=== PATIENT | male | born 1950 | race Caucasian/White ===

== ENCOUNTER → 2016-10-15 | Outpatient (CLI) | payer OTHER ==
[~2016-10-15] MED LIST: DABI150C PO; DILT120C51 PO; TOPROL PO; VALA500T60 PO
[2016-10-15 15:22] LABS: BLOOD UREA NITROGEN 11 mg/dl (7-18); BUN/CREATININE RATIO 10.2 (10-20); CALCIUM 9.1 mg/dl (8.5-10.1); CARBON DIOXIDE 27 mmol/L (21-32); CHLORIDE 105 mmol/L (98-107); GLUCOSE 93 mg/dl (70-99); POTASSIUM 4.1 mmol/L (3.5-5.1); SODIUM 141 mmol/L (136-145)
[2016-10-15 15:43] LABS: HEMATOCRIT 43.3 % (42-52); MEAN CELL VOLUME 84.2 fL (80-100); MEAN CORPUSCULAR HEMOGLOBIN 28.4 pg (25-34); MEAN CORPUSCULAR HGB CONC 33.7 g/dl (32-36); MEAN PLATELET VOLUME 9.6 fL (7.4-10.4); PLATELET COUNT 355 K/uL (130-400); RED BLOOD COUNT 5.14 M/uL (4.7-6.1); WHITE BLOOD COUNT 8.91 K/uL (4.8-10.8)
[2016-10-15 15:44] LABS: BASO % 0.3 %; BASO ABS # 0.03 K/uL (0-0.2); COMPLETE YES; EOS % 0.7 %; IG% 0.2 %; LYMPH % 6.7 %; MONO % 10.1 %
== END | disposition home or self-care (01) ==
LOC: C.LABSPEC 14:45
PROVIDERS: ATTEND Internal Medicine
DX: I48.91 Unspecified atrial fibrillation (principal); C85.80 Other specified types of non-Hodgkin lymphoma, unspecified site

== ENCOUNTER → 2016-10-22 | Outpatient (CLI) | payer OTHER ==
[~2016-10-22] MED LIST changes: +OPTIRAY 320 IV PRN
--- NOTE | 2016-10-22 11:06 | DIAGNOSTIC IMAGING REPORT ---
CT brain combination HEAD COMBO CLINICAL HISTORY: NORMAL PRESSURE HYDROCEPHALUS hydrocephalus TECHNIQUE: Pre and postcontrast transaxial acquisition COMPARISON STUDY: 05/19/2013 FINDINGS: Moderate to significant chronic mucosal thickening of the maxillary and ethmoid sinuses. Mastoid air cells are considered clear. Ventricular peritoneal shunt unchanged in location. Tip remains within the fourth ventricle. Mild compensatory hydrocephalus unchanged from the prior study. No new or interval findings IMPRESSION: Stable exam with no change from the prior study. No abnormal postcontrast enhancement. Chronic sinusitis of the ethmoid and maxillary regions Electronically signed by: Omer Cuellar M.D. 10/22/2016 11:04 AM Dictated Date/Time: 10/22/2016 10:56 AM
== END | disposition home or self-care (01) ==
LOC: C.CTS 09:49
PROVIDERS: ATTEND Internal Medicine
DX: G91.2 (Idiopathic) normal pressure hydrocephalus (principal)

== ENCOUNTER → 2017-01-26 | Outpatient (CLI) | payer OTHER ==
[~2017-01-26] MED LIST changes: -OPTIRAY 320 IV PRN
== END | disposition home or self-care (01) ==
LOC: C.LABSPEC 14:23
PROVIDERS: ATTEND Internal Medicine Hematology & Oncology
DX: C83.00 Small cell B-cell lymphoma, unspecified site (principal)

== ENCOUNTER → 2017-04-19 | Outpatient (CLI) | payer OTHER ==
[2017-04-19 13:03] LABS: BASO % 1.1 %; BASO ABS # 0.06 K/uL (0-0.2); COMPLETE YES; EOS % 1.8 %; HEMATOCRIT 46.3 % (42-52); IG% 0.2 %; LYMPH % 14.2 %; MEAN CELL VOLUME 86.4 fL (80-100); MEAN CORPUSCULAR HEMOGLOBIN 29.1 pg (25-34); MEAN CORPUSCULAR HGB CONC 33.7 g/dl (32-36); MEAN PLATELET VOLUME 9.9 fL (7.4-10.4); MONO % 13.9 %; NEUT % 68.8 %; PLATELET COUNT 310 K/uL (130-400); RED BLOOD COUNT 5.36 M/uL (4.7-6.1); WHITE BLOOD COUNT 5.62 K/uL (4.8-10.8)
[2017-04-19 13:26] LABS: ALT/SGPT 22 U/L (12-78); AST/SGOT 20 U/L (15-37); BLOOD UREA NITROGEN 16 mg/dl (7-18); BUN/CREATININE RATIO 12.9 (10-20); CALCIUM 9.6 mg/dl (8.5-10.1); CARBON DIOXIDE 29 mmol/L (21-32); CHLORIDE 104 mmol/L (98-107); GLUCOSE 93 mg/dl (70-99); POTASSIUM 4.8 mmol/L (3.5-5.1); SODIUM 140 mmol/L (136-145)
[2017-04-19 13:31] LABS: ALB/GLOB RATIO 1.3 (0.9-2); ALKALINE PHOSPHATASE 133 U/L (45-117); CHOLESTEROL 231 mg/dl (0-200); CHOLESTEROL/HDL RATIO 4.8; HDL CHOLESTEROL 48 mg/dl; PROSTATE SPECIFIC ANTIGEN < 0.010 ng/ml (0.000-4.000); TRIGLYCERIDES 144 mg/dl (0-150); VERY LOW DENSITY LIPOPROT CALC 29 mg/dl
--- NOTE | 2017-05-04 10:12 | CODING QUERY MEDICAL NECESSITY ---
CQSUPPORTING DIAGNOSIS NEEDED A supporting diagnosis is required for the test/procedure performed on this patient in order for us to be reimbursed by the patient's insurance. Please provide a supporting diagnosis for the following test/procedure listed below next to the test name along with your signature. *If there is no additional diagnosis for this patient that would support the following test/procedure please document that below next to the test/procedure. Test(s)/Procedure(s) that require a supporting diagnosis: DOS 04/19/17 PROSTATE SPECIFIC TEST Provider Signature: Date: Thank you Nallely Erazo [employer] Once completed, please kindly fax back to [phone] For questions please call [phone]
== END | disposition home or self-care (01) ==
LOC: C.LABSPEC 12:26
PROVIDERS: ATTEND Internal Medicine
DX: I48.91 Unspecified atrial fibrillation (principal); E78.5 Hyperlipidemia, unspecified; C83.00 Small cell B-cell lymphoma, unspecified site; C61 Malignant neoplasm of prostate

== ENCOUNTER → 2017-04-20 | Outpatient (CLI) | payer OTHER | END | disposition home or self-care (01) | LOC: C.LABSPEC 14:59 | PROVIDERS: ATTEND Internal Medicine | DX: Z12.11 Encounter for screening for malignant neoplasm of colon (principal) ==

== ENCOUNTER → 2017-10-18 | Outpatient (CLI) | payer OTHER ==
[2017-10-18 15:56] LABS: BASO % 0.6 %; BASO ABS # 0.04 K/uL (0-0.2); EOS % 1.1 %; EOS ABS # 0.07 K/uL (0-0.5); HEMATOCRIT 48.7 % (42-52); HEMOGLOBIN 16.3 g/dL (14.0-18.0); IG# 0.02 K/uL (0.00-0.02); LYMPH % 13.8 %; LYMPH ABS # 0.89 K/uL (1.2-3.4); MEAN CELL VOLUME 86.7 fL (80-100); MEAN CORPUSCULAR HGB CONC 33.5 g/dl (32-36); MEAN PLATELET VOLUME 10.1 fL (7.4-10.4); MONO % 9.2 %; MONO ABS # 0.59 K/uL (0.11-0.59); NEUT ABS # 4.83 K/uL (1.4-6.5); PLATELET COUNT 371 K/uL (130-400); RED CELL DISTRIBUTION WIDTH CV 14.6 % (11.5-14.5); RED CELL DISTRIBUTION WIDTH SD 46.3 fL (36.4-46.3); WHITE BLOOD COUNT 6.44 K/uL (4.8-10.8)
[2017-10-18 16:06] LABS: ALBUMIN 4.1 gm/dl (3.4-5.0); ALT/SGPT 23 U/L (12-78); AST/SGOT 13 U/L (15-37); BLOOD UREA NITROGEN 17 mg/dl (7-18); CALCIUM 9.4 mg/dl (8.5-10.1); CARBON DIOXIDE 28 mmol/L (21-32); CHOLESTEROL 248 mg/dl (0-200); CREATININE 1.17 mg/dl (0.60-1.40); GLUCOSE 88 mg/dl (70-99); POTASSIUM 3.4 mmol/L (3.5-5.1); SODIUM 137 mmol/L (136-145)
[2017-10-18 16:16] LABS: ALKALINE PHOSPHATASE 132 U/L (45-117); LDL CHOLESTEROL (DIRECT) 167 mg/dl; TOTAL PROTEIN 7.8 gm/dl (6.4-8.2)
== END | disposition home or self-care (01) ==
LOC: C.LABSPEC 15:34
PROVIDERS: ATTEND Internal Medicine
DX: C83.00 Small cell B-cell lymphoma, unspecified site (principal); I48.91 Unspecified atrial fibrillation; B35.1 Tinea unguium

== ENCOUNTER → 2017-10-21 | Outpatient (CLI) | payer OTHER ==
[~2017-10-21] MED LIST changes: +OPTIRAY 320 IV PRN
--- NOTE | 2017-10-21 12:02 | DIAGNOSTIC IMAGING REPORT ---
HEAD CT WITH AND WITHOUT INTRAVENOUS CONTRAST HISTORY: NORMAL PRESSURE HYDROCEPHALUS, MEMORY DEFICIT TECHNIQUE: Multiaxial CT images of the head were performed both before and after the intravenous administration of contrast. COMPARISON STUDY: Head CT 10/22/2016. FINDINGS: There is no mass, hematoma, midline shift. Stable moderate ventriculomegaly. There is again noted a right frontal approach ventriculostomy catheter. However, the proximal end of the catheter has become detached/fractured at the level of the lucho hole and has advanced into the brain by approximately 3 cm. The tip previously was located at the fourth ventricle and is now located at the left cerebellar hemisphere. The mastoid air cells are clear. Moderate mucosal thickening within the maxillary sinuses and right sphenoid sinus. Mild mucosal thickening within the ethmoid air cells. No calvarial fractures. No abnormal enhancement. IMPRESSION: 1. There is again noted a right frontal approach ventriculostomy catheter. However, the proximal end of the catheter has become detached/fractured at the level of the lucho hole and has advanced into the brain by approximately 3 cm. The tip previously was located at the fourth ventricle and is now located at the left cerebellar hemisphere. 2. Stable moderate ventriculomegaly. 3. No intracranial hemorrhage. 4. These findings were called to Dr. Smita Paz at 11:57 AM on 10/21/2017. Electronically signed by: Ryan Maza M.D. 10/21/2017 12:00 PM Dictated Date/Time: 10/21/2017 11:47 AM
== END | disposition home or self-care (01) ==
LOC: C.CTS 11:19
PROVIDERS: ATTEND Internal Medicine
DX: G91.2 (Idiopathic) normal pressure hydrocephalus (principal); R41.3 Other amnesia

== ENCOUNTER 2021-01-02 12:17 | Inpatient (IN) ==
[2021-01-02] MEDS ORDERED: ALBUT/IPRATROP 3MG/0.5MG NEB 3 ML VIAL NEB STA (13:01)
[2021-01-02 13:16] LABS: Basophils # (auto) 0.01 K/uL (0-0.2); Basophils % (auto) 0.1 %; Eosinophils # (auto) 0.01 K/uL (0-0.5); Eosinophils % (auto) 0.1 %; Hematocrit (blood only) 39.9 % (42-52); Hemoglobin 13.9 g/dL (14.0-18.0); Immature Granulocytes # (auto) 0.11 K/uL (0.00-0.02); Immature Granulocytes % (auto) 0.6 %; Lymphocytes # (auto) 0.45 K/uL (1.2-3.4); Lymphocytes % (auto) 2.3 %; Mean Corpuscular Hgb Conc 34.8 g/dL (32-36); Mean Corpuscular Volume 80.4 fL (80-100); Mean Platelet Volume 9.5 fL (7.4-10.4); Monocytes # (auto) 1.63 K/uL (0.11-0.59); Monocytes % (auto) 8.3 %; Neutrophils # (auto) 17.37 K/uL (1.4-6.5); Neutrophils % (auto) 88.6 %; Platelet Count 564 K/uL (130-400); RDW Coefficient of Variation 15.4 % (11.5-14.5); RDW Standard Deviation 44.8 fL (36.4-46.3); Red Blood Count 4.96 M/uL (4.7-6.1); White Blood Count 19.58 K/uL (4.8-10.8)
[2021-01-02 13:25] LABS: iSTAT Creatinine 1.1 mg/dl (0.6-1.3); iSTAT Hemoglobin 14.3 g/dl (14.0-18.0); iSTAT Ionized Calcium 1.02 mmol/l (1.12-1.32)
[2021-01-02 13:31] LABS: BUN Creatinine Ratio 22.6 (10-20); Calcium 9.2 mg/dl (8.5-10.1); Creatinine Clr Calc Pharmacy 78.3 ml/min; Est GFR (African American) 80.9 ml/min; Est GFR (Non-African American) 69.8 ml/min; Potassium 3.2 mmol/L (3.5-5.1)
--- NOTE | 2021-01-02 13:58 | Emergency Department Note ---
History of Present Illness General Chief Complaint: Shortness of Breath/Dyspnea Stated Complaint: PAIN IN L SIDE X5DAYS,SHALLOW BREATHING,LOW O2 LEV Time Seen by Provider: 01/02/21 12:53 History of Present Illness Provider Complaint: shortness of breath and cough Onset (ago): day(s) (5) Severity: moderate Consistency/Duration: + progressively worsening Maximum Pain Intensity: 3 Current Pain Intensity: 3 Exacerbated By: + coughing Associated symptoms: + fever and + cough HPI Narrative: No history of smoking. Patient states that he was recently started on a Z-Desean which did not help. Patient states he went to his PCPs office Dr. Gabe higginbotham and had an oxygen saturation in the 80s on room air and was instructed to come here. Home Medications Medication Instructions Recorded Confirmed Type apixaban 5 mg tablet 5 mg PO BID 09/27/20 01/02/21 History diltiazem HCl 180 mg 180 mg PO DAILY 09/27/20 01/02/21 History capsule,extended release 24 hr hydrochlorothiazide 25 mg tablet 25 mg PO DAILY 09/27/20 01/02/21 History metoprolol succinate 25 mg 25 mg PO DAILY 09/27/20 01/02/21 History tablet,extended release 24 hr fluticasone fur. 100 mcg-umeclid 1 inh INHALATION DAILY #3 inhaler 12/24/20 01/02/21 Rx 62.5 mcg-vilant 25 mcg inhalat.powder azithromycin 500 mg tablet 500 mg PO DAILY 5 Days #5 tab 12/28/20 01/02/21 Rx guaifenesin 600 mg tablet, 600 mg PO BID PRN #60 tab 12/28/20 01/02/21 Rx extended release 12 hr spironolactone 12.5 mg PO DAILY 01/02/21 01/02/21 History Allergies Allergy/AdvReac Type Severity Reaction Status Date / Time ragweed pollen Allergy Mild UNKNOWN Unverified 01/02/21 14:26 Past Med/Surg History Medical History (Updated 01/02/21 @ 19:49 by Erick Barnett) Bronchiectasis CLL (chronic lymphocytic leukemia) Hypertension IgG subclass deficiency Impotence, organic No pertinent family history Normal pressure hydrocephalus Permanent atrial fibrillation Prostate cancer Surgical History (Updated 01/02/21 @ 13:59 by Erick Barnett) No pertinent past surgical history Social History Smoking Status: Never smoker Second Hand Exposure: No; Hx Alcohol Use: No Hx Substance Use: No Preferred Language: Cook Islander Communication Ability: Effective 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 Beliefs That Will Affect Care: None Current Living Situation: Spouse Other Information That Helps Us Care for You: No Feels Safe at Home: Yes Safety Concerns: Feels Safe At This Time Assistive Devices: Glasses and Hearing Aid - Left Review of Systems A total of 10 systems reviewed and were otherwise negative Physical Exam Vital Signs: Vital Signs - 24 hr 01/02/21 12:30 01/02/21 12:49 01/02/21 12:51 Temperature 36.4 C L Temperature Source Temporal Artery Sc an Pulse Rate 120 H 113 H 112 H Pulse Rate [Finger ] Pulse Rate from Sp O2 Sensor 114 H 111 H Pulse Rhythm Respiratory Rate 22 19 28 H Respiratory Effort / Characteristics Blood Pressure 137/84 129/82 Blood Pressure Hue n 101 97 Pulse Oximetry 92 91 91 Oxygen Delivery Me thod Room Air Oxygen Flow Rate Sepsis Recent Feve r Within 48 Hours No Sepsis New/Unexpla ined Change in Men thelma Status No Sepsis Action Take n by Nursing No Action Required Oxygen Flow Rate - Titration Pulse Oximetry Pos t Tiitration 01/02/21 13:00 01/02/21 13:01 01/02/21 13:03 Temperature Temperature Source Pulse Rate 116 H 108 H 110 H Pulse Rate [Finger ] Pulse Rate from Sp O2 Sensor 118 H 108 H Pulse Rhythm Regular Respiratory Rate 28 H 23 23 Respiratory Effort / Characteristics Blood Pressure 120/79 Blood Pressure Heu n 92 Pulse Oximetry 91 91 94 Oxygen Delivery Me thod Nasal Cannula Oxygen Flow Rate 2 Sepsis Recent Feve r Within 48 Hours Sepsis New/Unexpla ined Change in Men thelma Status Sepsis Action Take n by Nursing Oxygen Flow Rate - Titration 2 Pulse Oximetry Pos t Tiitration 94 01/02/21 13:10 01/02/21 13:20 01/02/21 13:30 Temperature Temperature Source Pulse Rate 111 H 111 H 109 H Pulse Rate [Finger ] Pulse Rate from Sp O2 Sensor 108 H 108 H 113 H Pulse Rhythm Respiratory Rate 24 Respiratory Effort / Characteristics Blood Pressure 119/76 Blood Pressure Hue n 90 Pulse Oximetry 94 93 94 Oxygen Delivery Me thod Nasal Cannula Oxygen Flow Rate 2 Sepsis Recent Feve r Within 48 Hours Sepsis New/Unexpla ined Change in Men thelma Status Sepsis Action Take n by Nursing Oxygen Flow Rate - Titration Pulse Oximetry Pos t Tiitration 01/02/21 13:31 01/02/21 13:37 01/02/21 13:40 Temperature Temperature Source Pulse Rate 108 H 113 H Pulse Rate [Finger ] 108 H Pulse Rate from Sp O2 Sensor 106 H 107 H Pulse Rhythm Respiratory Rate 20 18 Respiratory Effort / Characteristics Non-Labored Sponta neous Blood Pressure Blood Pressure Hue n Pulse Oximetry 94 94 94 Oxygen Delivery Me thod Nasal Cannula Nasal Cannula Oxygen Flow Rate 2 2 Sepsis Recent Feve r Within 48 Hours Sepsis New/Unexpla ined Change in Men thelma Status Sepsis Action Take n by Nursing Oxygen Flow Rate - Titration Pulse Oximetry Pos t Tiitration 01/02/21 13:50 01/02/21 14:00 01/02/21 14:01 Temperature Temperature Source Pulse Rate 113 H 117 H 113 H Pulse Rate [Finger ] Pulse Rate from Sp O2 Sensor Pulse Rhythm Respiratory Rate 21 22 Respiratory Effort / Characteristics Blood Pressure 121/80 Blood Pressure Hue n 93 Pulse Oximetry Oxygen Delivery Me thod Oxygen Flow Rate Sepsis Recent Feve r Within 48 Hours Sepsis New/Unexpla ined Change in Men thelma Status Sepsis Action Take n by Nursing Oxygen Flow Rate - Titration Pulse Oximetry Pos t Tiitration 01/02/21 14:10 01/02/21 14:20 01/02/21 14:41 Temperature Temperature Source Pulse Rate 115 H 112 H 120 H Pulse Rate [Finger ] Pulse Rate from Sp O2 Sensor Pulse Rhythm Respiratory Rate 25 H 23 22 Respiratory Effort / Characteristics Blood Pressure Blood Pressure Hue n Pulse Oximetry Oxygen Delivery Me thod Oxygen Flow Rate Sepsis Recent Feve r Within 48 Hours Sepsis New/Unexpla ined Change in Men thelma Status Sepsis Action Take n by Nursing Oxygen Flow Rate - Titration Pulse Oximetry Pos t Tiitration 01/02/21 14:48 01/02/21 14:50 01/02/21 15:00 Temperature Temperature Source Pulse Rate 112 H 114 H 104 H Pulse Rate [Finger ] Pulse Rate from Sp O2 Sensor 112 H 110 H 109 H Pulse Rhythm Respiratory Rate 22 24 23 Respiratory Effort / Characteristics Blood Pressure 124/66 125/71 Blood Pressure Hue n 85 89 Pulse Oximetry 98 97 95 Oxygen Delivery Me thod Oxygen Flow Rate Sepsis Recent Feve r Within 48 Hours Sepsis New/Unexpla ined Change in Men thelma Status Sepsis Action Take n by Nursing Oxygen Flow Rate - Titration Pulse Oximetry Pos t Tiitration 01/02/21 15:01 01/02/21 15:10 01/02/21 15:29 Temperature Temperature Source Pulse Rate 114 H 112 H 117 H Pulse Rate [Finger ] Pulse Rate from Sp O2 Sensor 112 H 114 H Pulse Rhythm Respiratory Rate 23 29 H 21 Respiratory Effort / Characteristics Blood Pressure Blood Pressure Hue n Pulse Oximetry 95 95 Oxygen Delivery Me thod Oxygen Flow Rate Sepsis Recent Feve r Within 48 Hours Sepsis New/Unexpla ined Change in Men thelma Status Sepsis Action Take n by Nursing Oxygen Flow Rate - Titration Pulse Oximetry Pos t Tiitration 01/02/21 15:30 01/02/21 15:31 01/02/21 15:40 Temperature Temperature Source Pulse Rate 112 H 116 H 106 H Pulse Rate [Finger ] Pulse Rate from Sp O2 Sensor 112 H 112 H 111 H Pulse Rhythm Respiratory Rate 29 H 20 18 Respiratory Effort / Characteristics Blood Pressure 131/84 Blood Pressure Hue n 99 Pulse Oximetry 97 97 93 Oxygen Delivery Me thod Oxygen Flow Rate Sepsis Recent Feve r Within 48 Hours Sepsis New/Unexpla ined Change in Men thelma Status Sepsis Action Take n by Nursing Oxygen Flow Rate - Titration Pulse Oximetry Pos t Tiitration 01/02/21 15:50 01/02/21 16:00 01/02/21 16:01 Temperature Temperature Source Pulse Rate 109 H 107 H 114 H Pulse Rate [Finger ] Pulse Rate from Sp O2 Sensor 112 H 110 H 109 H Pulse Rhythm Respiratory Rate 31 H 27 H 37 H Respiratory Effort / Characteristics Blood Pressure 126/84 Blood Pressure Hue n 98 Pulse Oximetry 93 93 93 Oxygen Delivery Me thod Oxygen Flow Rate Sepsis Recent Feve r Within 48 Hours Sepsis New/Unexpla ined Change in Men thelma Status Sepsis Action Take n by Nursing Oxygen Flow Rate - Titration Pulse Oximetry Pos t Tiitration 01/02/21 16:10 Temperature Temperature Source Pulse Rate 113 H Pulse Rate [Finger ] Pulse Rate from Sp O2 Sensor 111 H Pulse Rhythm Respiratory Rate 28 H Respiratory Effort / Characteristics Blood Pressure Blood Pressure Hue n Pulse Oximetry 93 Oxygen Delivery Me thod Oxygen Flow Rate Sepsis Recent Feve r Within 48 Hours Sepsis New/Unexpla ined Change in Men thelma Status Sepsis Action Take n by Nursing Oxygen Flow Rate - Titration Pulse Oximetry Pos t Tiitration Physical Exam: Physical Exam GENERAL: He is oriented to person, place, and time. He appears well-developed and well-nourished. He does not appear distressed. HENT: Exam performed. - Head: Normocephalic and atraumatic. - Right Ear: External ear normal. No mastoid tenderness. - Left Ear: External ear normal. No mastoid tenderness. - Mouth/Throat: The oropharynx is clear and moist. No trismus in the jaw. No dental abscesses or uvula swelling. No oropharyngeal exudate or tonsillar abscesses. EYES: Conjunctivae and EOM are normal. Pupils are equal, round, and reactive to light. Right eye exhibits no discharge. Left eye exhibits no discharge. No scleral icterus. NECK: Normal range of motion. Neck supple. No JVD present. No spinous process tenderness present. No carotid bruit present. No rigidity. No tracheal deviation and normal range of motion present. No Brudzinski's sign and no Kernig's sign noted. CV: Normal rate, irregular rhythm, normal heart sounds and intact distal pulses. There is no peripheral edema. Palpable radial pulses bue. PULM/CHEST: Expiratory wheezes bilaterally. Rhonchi bilaterally. - Chest Wall: He exhibits no tenderness. ABD: The abdomen is soft. Bowel sounds are normal. He has no distension. No mass is present. There is no tenderness. There is no rebound, no guarding, no Polk's sign and no tenderness at McBurney's point. Rovsig negative. MUSC/SKEL: Normal range of motion. There is no peripheral edema, tenderness or deformity. LYMPH: No cervical adenopathy. NEURO: He is alert and oriented to person, place, and time. He has normal strength. No cranial nerve deficit or sensory deficit. Coordination and gait normal. GCS eye subscore is 4. GCS verbal subscore is 5. GCS motor subscore is 6. Cerebellar tests wnl. SKIN: Skin is warm and dry. He is not diaphoretic. PSYCH: He has a normal mood and affect. Behavior is normal. Judgment and thought content normal. Course Course 1253: The patient was evaluated in room B9. A complete history and physical exam was performed Cardiac monitoring: An order was placed for continuous cardiac monitoring. The monitor shows a rate of 110 with atrial fibrillation rhythm Patient was satting 88% on room air on arrival in the emergency department. Patient was placed on 2 L nasal cannula which improved his oxygen saturation. EMR reviewed. Patient has a history of IgG deficiency and bronchiectasis. We will give the patient DuoNeb treatment. No history of COPD or asthma. Will ob tain CT scan of the chest to rule out pneumonia. We will plan on admitting the patient for presumed pneumonia. We will retest the patient for COVID-19 as well as influenza. 1500: Vital signs stable on 2 L nasal cannula. Labs show leukocytosis of 19.58. Potassium of 3.2. Lactate within normal limits. Covid and influenza negative. CT does show pneumonia. Patient be treated with broad-spectrum antibiotics, blood cultures pending. [facility]. Administered Medications Discontinued Medications Albuterol (Albut/Ipratrop 3mg/0.5mg Neb 3 Ml Vial) 3 ml NEB NOW STA Stop: 01/02/21 13:02 Last Admin: 01/02/21 13:32 Dose: 3 ml Documented by: [id number] Cefepime HCl (Maxipime) 2,000 mg in 20 mls @ 5 mls/min IV NOW STA; Protocol Stop: 01/02/21 14:59 Last Admin: 01/02/21 15:04 Dose: 5 mls/min Documented by: [id number] Vancomycin HCl 2,500 mg/ (Sodium Chloride) 550 mls @ 200 mls/hr IV NOW ONE Stop: 01/02/21 17:40 Last Infusion: 01/02/21 18:15 Dose: 0 mls/hr Documented by: [id number] Admin: 01/02/21 15:28 Dose: 200 mls/hr Documented by: [id number] Ioversol (Optiray 320 150ml) 90 ml IV ONCE ONE Stop: 01/02/21 14:34 Last Admin: 01/02/21 14:34 Dose: 90 ml Documented by: [id number] Medical Decision Making Laboratory Data Result diagrams: 01/02/21 12:59 01/02/21 12:59 Lab Results 01/02/21 01/02/21 01/02/21 Range/Units 12:59 12:59 12:59 WBC 19.58 H (4.8-10.8) K/uL RBC 4.96 (4.7-6.1) M/uL Hgb 13.9 L (14.0-18.0) g/dL POC Hgb (14.0-18.0) g/dl Hct 39.9 L (42-52) % POC Hct (42-52) % MCV 80.4 (80-100) fL MCH 28.0 (25-34) pg MCHC 34.8 (32-36) g/dL RDW Std Deviation 44.8 (36.4-46.3) fL RDW Coeff of Ariana 15.4 H (11.5-14.5) % Plt Count 564 H (130-400) K/uL MPV 9.5 (7.4-10.4) fL Immature Gran % (Auto) 0.6 % Neut % (Auto) 88.6 % Lymph % (Auto) 2.3 % Lake % (Auto) 8.3 % Eos % (Auto) 0.1 % Baso % (Auto) 0.1 % Neut # (Auto) 17.37 H (1.4-6.5) K/uL Lymph # (Auto) 0.45 L (1.2-3.4) K/uL Lake # (Auto) 1.63 H (0.11-0.59) K/uL Eos # (Auto) 0.01 (0-0.5) K/uL Baso # (Auto) 0.01 (0-0.2) K/uL Immature Gran # (Auto) 0.11 H (0.00-0.02) K/uL PT (9.0-12.0) Seconds INR (0.9-1.1) APTT (21.0-31.0) Seconds PTT Ratio POC Sodium (135-144) mmol/L Sodium 135 L (136-145) mmol/L POC Potassium (3.3-5.0) mmol/L Potassium 3.2 L (3.5-5.1) mmol/L POC Chloride (101-112) mmol/L Chloride 97 L (98-107) mmol/L Carbon Dioxide 26 (21-32) mmol/L POC Total CO2 (24-31) mmol/L Anion Gap 12.0 H (3-11) POC Anion Gap (16-25) mmol/L POC BUN (7-18) mg/dl BUN 24 H (7-18) mg/dl Creatinine 1.06 (0.6-1.4) mg/dl POC Creatinine (0.6-1.3) mg/dl Est Cr Clr Drug Dosing 78.3 ml/min Est GFR ( Amer) 80.9 ml/min Est GFR (Non-Af Amer) 69.8 ml/min BUN/Creatinine Ratio 22.6 H (10-20) Glucose 102 H (70-99) mg/dl POC Glucose (other) (70-99) mg/dl Lactate 1.3 (0.4-2.0) mmol/L Calcium 9.2 (8.5-10.1) mg/dl POC Ioniz Calcium Aliya (1.12-1.32) mmol/l COVID-19 Eval Order SARS-CoV-2 (PCR) (Negative) Influ A Molecular Assay (Negative) Influ B Molecular Assay (Negative) 01/02/21 01/02/21 01/02/21 Range/Units 13:13 13:25 13:25 WBC (4.8-10.8) K/uL RBC (4.7-6.1) M/uL Hgb (14.0-18.0) g/dL POC Hgb 14.3 (14.0-18.0) g/dl Hct (42-52) % POC Hct 42 (42-52) % MCV (80-100) fL MCH (25-34) pg MCHC (32-36) g/dL RDW Std Deviation (36.4-46.3) fL RDW Coeff of Ariana (11.5-14.5) % Plt Count (130-400) K/uL MPV (7.4-10.4) fL Immature Gran % (Auto) % Neut % (Auto) % Lymph % (Auto) % Lake % (Auto) % Eos % (Auto) % Baso % (Auto) % Neut # (Auto) (1.4-6.5) K/uL Lymph # (Auto) (1.2-3.4) K/uL Lake # (Auto) (0.11-0.59) K/uL Eos # (Auto) (0-0.5) K/uL Baso # (Auto) (0-0.2) K/uL Immature Gran # (Auto) (0.00-0.02) K/uL PT (9.0-12.0) Seconds INR (0.9-1.1) APTT (21.0-31.0) Seconds PTT Ratio POC Sodium 134 L (135-144) mmol/L Sodium (136-145) mmol/L POC Potassium 3.0 L (3.3-5.0) mmol/L Potassium (3.5-5.1) mmol/L POC Chloride 94 L (101-112) mmol/L Chloride (98-107) mmol/L Carbon Dioxide (21-32) mmol/L POC Total CO2 26 (24-31) mmol/L Anion Gap (3-11) POC Anion Gap 18.0 (16-25) mmol/L POC BUN 23 H (7-18) mg/dl BUN (7-18) mg/dl Creatinine (0.6-1.4) mg/dl POC Creatinine 1.1 (0.6-1.3) mg/dl Est Cr Clr Drug Dosing ml/min Est GFR ( Amer) ml/min Est GFR (Non-Af Amer) ml/min BUN/Creatinine Ratio (10-20) Glucose (70-99) mg/dl POC Glucose (other) 111 H (70-99) mg/dl Lactate (0.4-2.0) mmol/L Calcium (8.5-10.1) mg/dl POC Ioniz Calcium Aliya 1.02 L (1.12-1.32) mmol/l COVID-19 Eval Order Covid19 at [facility] SARS-CoV-2 (PCR) NEGATIVE (Negative) Influ A Molecular Assay (Negative) Influ B Molecular Assay (Negative) 01/02/21 01/02/21 Range/Units 13:28 13:46 WBC (4.8-10.8) K/uL RBC (4.7-6.1) M/uL Hgb (14.0-18.0) g/dL POC Hgb (14.0-18.0) g/dl Hct (42-52) % POC Hct (42-52) % MCV (80-100) fL MCH (25-34) pg MCHC (32-36) g/dL RDW Std Deviation (36.4-46.3) fL RDW Coeff of Ariana (11.5-14.5) % Plt Count (130-400) K/uL MPV (7.4-10.4) fL Immature Gran % (Auto) % Neut % (Auto) % Lymph % (Auto) % Lake % (Auto) % Eos % (Auto) % Baso % (Auto) % Neut # (Auto) (1.4-6.5) K/uL Lymph # (Auto) (1.2-3.4) K/uL Lake # (Auto) (0.11-0.59) K/uL Eos # (Auto) (0-0.5) K/uL Baso # (Auto) (0-0.2) K/uL Immature Gran # (Auto) (0.00-0.02) K/uL PT 12.7 H (9.0-12.0) Seconds INR 1.3 H (0.9-1.1) APTT 44.4 H (21.0-31.0) Seconds PTT Ratio 1.7 POC Sodium (135-144) mmol/L Sodium (136-145) mmol/L POC Potassium (3.3-5.0) mmol/L Potassium (3.5-5.1) mmol/L POC Chloride (101-112) mmol/L Chloride (98-107) mmol/L Carbon Dioxide (21-32) mmol/L POC Total CO2 (24-31) mmol/L Anion Gap (3-11) POC Anion Gap (16-25) mmol/L POC BUN (7-18) mg/dl BUN (7-18) mg/dl Creatinine (0.6-1.4) mg/dl POC Creatinine (0.6-1.3) mg/dl Est Cr Clr Drug Dosing ml/min Est GFR ( Amer) ml/min Est GFR (Non-Af Amer) ml/min BUN/Creatinine Ratio (10-20) Glucose (70-99) mg/dl POC Glucose (other) (70-99) mg/dl Lactate (0.4-2.0) mmol/L Calcium (8.5-10.1) mg/dl POC Ioniz Calcium Aliya (1.12-1.32) mmol/l COVID-19 Eval Order SARS-CoV-2 (PCR) (Negative) Influ A Molecular Assay Negative (Negative) Influ B Molecular Assay Negative (Negative) Imaging Data Radiologist's Impression: Chest CT 01/02/21 13:01 CT SCAN OF THE CHEST WITH IV CONTRAST CLINICAL HISTORY: Cough and fever. IgG deficiency COMPARISON STUDY: Chest CT dated 09/06/2020. TECHNIQUE: Following the IV administration of 90 cc of Optiray 320, CT scan of the thorax was performed from the thoracic inlet to the upper abdomen. Images are reviewed in the axial, sagittal, and coronal planes. IV contrast was administered without complication. A dose lowering technique was utilized adhering to the principles of ALARA. CT DOSE: 541.00 mGy.cm FINDINGS: Thyroid: Imaged portions of the thyroid gland are normal in size and attenuation. Thoracic aorta: There is atherosclerotic calcification of the thoracic aorta, which is normal in caliber and demonstrates standard 3-vessel arch anatomy. No dissection is seen. Pulmonary vasculature: The pulmonary trunk is normal in caliber. There are no filling defects identified in the central pulmonary vessels to indicate pulmonary embolus. Note that this examination was not protocoled for evaluation of the pulmonary arteries. Heart: The heart is enlarged and without pericardial effusion. The coronary arteries are densely calcified. Lungs and pleural spaces: There is a moderate and at least partially pleural fluid/collection is seen at the left lung base with dense consolidation/atele ctasis of the left lower lobe. There is associated pleural thickening. Bronchiectasis is seen in the right middle and right lower lobes, with right basilar scarring/atelectasis. Tree-in-bud opacities are again seen at the right lung base. The left upper lobe and the right upper lung appear clear. Layering secretions are noted in the trachea. Mediastinum: There is no mediastinal lymphadenopathy. Delmy: Clear. Axillae: There is no axillary lymphadenopathy. Upper abdomen: There is a small hiatal hernia. An 8 mm simple cystic lesion in the pancreatic body likely represents a sidebranch IPMN. Skeletal structures: The skeletal structures are osteopenic. A chronic compression deformity is again noted in T6. No lytic or blastic bony lesions are seen. Soft tissues: A shunt catheter traverses the right anterior chest wall. IMPRESSION: 1. There is a moderate and at least partially loculated pleural effusion/collection at the left lung base. There is overlying pleural thickening, and this is new from 09/06/2020. The sterility of this fluid cannot be assessed by CT. 2. There is consolidation/atelectasis of the left lower lung. 3. Bronchiectasis and chronic parenchymal changes are again seen at the right lung base. 4. Cardiomegaly. 5. Additional findings as above. ACT 112: Negative or not required by law. Electronically signed by: Freddy Quintanilla M.D. 01/02/2021 2:51 PM ECG Data Interpretation: Atrial fibrillation with a rate of 117. QRS and QTc intervals are within normal limits. No ST elevation or ST depression. [facility] Narrative 1253: The patient was evaluated in room B9. A complete history and physical exam was performed Cardiac monitoring: An order was placed for continuous cardiac monitoring. The monitor shows a rate of 110 with atrial fibrillation rhythm Patient was satting 88% on room air on arrival in the emergency department. Patient was placed on 2 L nasal cannula which improved his oxygen saturation. EMR reviewed. Patient has a history of IgG deficiency and bronchiectasis. We will give the patient DuoNeb treatment. No history of COPD or asthma. Will obtain CT scan of the chest to rule out pneumonia. We will plan on admitting the patient for presumed pneumonia. We will retest the patient for COVID-19 as well as influenza. 1500: Vital signs stable on 2 L nasal cannula. Labs show leukocytosis of 19.58. Potassium of 3.2. Lactate within normal limits. Covid and influenza negative. CT does show pneumonia. Patient be treated with broad-spectrum antibiotics, blood cultures pending. [facility]. Impression & Plan Hypoxia, Pneumonia, Bronchiectasis, IgG subclass deficiency Critical Care Time Critical Care Time: Yes Total Critical Care Time: 47 I have personally spent greater than 47 minutes of critical care time in the direct management of this patient. This includes bedside care, interpretation of diagnostic studies, and testing, discussion with consultants, patient, and family members, and other required patient management activities. This 47 minutes is in excess of all separately billable procedures. Discharge Plan Visit Data Chief Complaint: Shortness of Breath/Dyspnea Stated Complaint: PAIN IN L SIDE X5DAYS,SHALLOW BREATHING,LOW O2 LEV ED Provider: Erick Barnett Discharge Problem: Hypoxia, Pneumonia, Bronchiectasis, IgG subclass deficiency Patient Disposition: Still a Patient Discharge Instructions Interventions: ED Discharge Assessment Last Done: 01/02/21 17:30 Discharge Problem: Pneumonia Qualifiers: Pneumonia type: due to unspecified organism Laterality: right Lung location: unspecified part of lung Qualified Code(s): J18.9 - Pneumonia, unspecified organism Bronchiectasis Qualifiers: Bronchiectasis type: uncomplicated Qualified Code(s): J47.9 - Bronchiectasis, uncomplicated
[2021-01-02 14:12] LABS: Influenza A virus by PCR Negative (Negative); Influenza B virus by PCR Negative (Negative)
[2021-01-02] MEDS ORDERED: OPTIRAY 320 150ml IV ONE (14:33)
[2021-01-02 14:42] LABS: INR 1.3 (0.9-1.1); Partial Thromboplastin Ratio 1.7; Partial Thromboplastin Time 44.4 Seconds (21.0-31.0); Prothrombin Time 12.7 Seconds (9.0-12.0)
--- NOTE | 2021-01-02 14:53 | CT Scan Report ---
CT SCAN OF THE CHEST WITH IV CONTRAST CLINICAL HISTORY: Cough and fever. IgG deficiency COMPARISON STUDY: Chest CT dated 09/06/2020. TECHNIQUE: Following the IV administration of 90 cc of Optiray 320, CT scan of the thorax was perform ed from the thoracic inlet to the upper abdomen. Images are reviewed in the axial, sagittal, and jennifer nal planes. IV contrast was administered without complication. A dose lowering technique was utilize d adhering to the principles of ALARA. CT DOSE: 541.00 mGy.cm FINDINGS: Thyroid: Imaged portions of the thyroid gland are normal in size and attenuation. Thoracic aorta: There is atherosclerotic calcification of the thoracic aorta, which is normal in [place] and demonstrates standard 3-vessel arch anatomy. No dissection is seen. Pulmonary vasculature: The pulmonary trunk is normal in caliber. There are no filling defects identif ied in the central pulmonary vessels to indicate pulmonary embolus. Note that this examination was no t protocoled for evaluation of the pulmonary arteries. Heart: The heart is enlarged and without pericardial effusion. The coronary arteries are densely calc ified. Lungs and pleural spaces: There is a moderate and at least partially pleural fluid/collection is seen at the left lung base with dense consolidation/atelectasis of the left lower lobe. There is associat ed pleural thickening. Bronchiectasis is seen in the right middle and right lower lobes, with right b asilar scarring/atelectasis. Tree-in-bud opacities are again seen at the right lung base. The left up per lobe and the right upper lung appear clear. Layering secretions are noted in the trachea. Mediastinum: There is no mediastinal lymphadenopathy. Delmy: Clear. Axillae: There is no axillary lymphadenopathy. Upper abdomen: There is a small hiatal hernia. An 8 mm simple cystic lesion in the pancreatic body li lelo represents a sidebranch IPMN. Skeletal structures: The skeletal structures are osteopenic. A chronic compression deformity is again noted in T6. No lytic or blastic bony lesions are seen. Soft tissues: A shunt catheter traverses the right anterior chest wall. IMPRESSION: 1. There is a moderate and at least partially loculated pleural effusion/collection at the left lung base. There is overlying pleural thickening, and this is new from 09/06/2020. The sterility of this flu id cannot be assessed by CT. 2. There is consolidation/atelectasis of the left lower lung. 3. Bronchiectasis and chronic parenchymal changes are again seen at the right lung base. 4. Cardiomegaly. 5. Additional findings as above. ACT 112: Negative or not required by law. Electronically signed by: Freddy Quintanilla M.D. 01/02/2021 2:51 PM
[2021-01-02] MEDS ORDERED: VANCOMYCIN CONSULT ACTIVE PRN ×2 (14:56→18:36)
[2021-01-02] MEDS ORDERED: CEFEPIME 2,000 MG/20 ML VIAL IV STA (14:56)
[2021-01-02] MEDS ORDERED: VANCOMYCIN HCL 2,500 MG in SODIUM CHLORIDE 0.9% 500 ML IV ONE (14:56)
--- NOTE | 2021-01-02 15:22 | History & Physical Report ---
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 Pleural Effusion - oxygen prn O2 goal > 94 - pulmonology consult, query thoracentesis - vanc, cefepime, flagyl - trend cbc, cmp - duoneb Hx abnormal CT scan - CT scan in sep 2020 noting tree-in-bud airspace possibly indicating mycoplasma - bronch negative for any growth including no acid-fast bacilli growth Afib - cont metoprolol, xarelto NPH - monitor UOP, gait, neurologic status for changes - no hx of urinary incontinence HTN - cont diltiazem, hctz, spironolactone Hypokalemia - 3.2 on admission - 20 mg iv repletion in ER, recheck in AM DVT ppx: xarelto FEN/GI: heart healthy, maintenance fluids Code Status: FUll COde Dispo: Med/Surg with tele (2) IgG subclass deficiency: (3) Bronchiectasis: (4) Hypoxia: (5) Ventricular shunt in place: (6) Normal pressure hydrocephalus: History of Present Illness 70 yo M with hx IgG deficiency, bronchiectasis, NPH with shunt, prostate cancer and lymphoma s/p chemotherapy, brought to ER by after found to have Spo2 of 80% in the office. Has been having increasing dyspnea since 11/28/20. Woke up with left sided chest pain at 3 am, pain with deep inspiration. describes that he was acutely sweaty, with purplish lips and fingernails. She had him sit in a hot shower and lay back down and this improved quickly. call manager poultry farmer egg prescribed azithromycin and guafensin. He continued to have SOB with exertion and pain with inspiration, with no visible improvement on azithromycin. Primary Care Provider: Bassam Bernal MD Allergies Allergy/AdvReac Type Severity Reaction Status Date / Time ragweed pollen Allergy Mild UNKNOWN Unverified 01/02/21 14:26 Home Medications Medication Instructions Recorded Confirmed Type apixaban 5 mg tablet 5 mg PO BID 09/27/20 01/02/21 History diltiazem HCl 180 mg 180 mg PO DAILY 09/27/20 01/02/21 History capsule,extended release 24 hr hydrochlorothiazide 25 mg tablet 25 mg PO DAILY 09/27/20 01/02/21 History metoprolol succinate 25 mg 25 mg PO DAILY 09/27/20 01/02/21 History tablet,extended release 24 hr fluticasone fur. 100 mcg-umeclid 1 inh INHALATION DAILY #3 inhaler 12/24/20 01/02/21 Rx 62.5 mcg-vilant 25 mcg inhalat.powder azithromycin 500 mg tablet 500 mg PO DAILY 5 Days #5 tab 12/28/20 01/02/21 Rx guaifenesin 600 mg tablet, 600 mg PO BID PRN #60 tab 12/28/20 01/02/21 Rx extended release 12 hr spironolactone 12.5 mg PO DAILY 01/02/21 01/02/21 History Past Med/Surg History Medical History (Updated 01/03/21 @ 09:18 by Rasta Laird MD) Bronchiectasis CLL (chronic lymphocytic leukemia) Hypertension IgG subclass deficiency Impotence, organic Lymphoma No pertinent family history Normal pressure hydrocephalus Permanent atrial fibrillation Prostate cancer Surgical History (Updated 01/02/21 @ 20:03 by Cheyenne Hernandez MD) No pertinent past surgical history CREW CHIEF (ventriculoperitoneal) shunt status Social History Smoking Status: Never smoker Second Hand Exposure: No; Hx Alcohol Use: No Hx Substance Use: No Preferred Language: Filipino Communication Ability: Effective Cake Wringer Required: No Beliefs That Will Affect Care: None Current Living Situation: Spouse Other Information That Helps Us Care for You: No Feels Safe at Home: Yes Safety Concerns: Feels Safe At This Time Assistive Devices: Oxygen - Continuous Review of Systems Constitutional: + fever, + chills, + sweats and + fatigue Eyes: no blind spots and no discharge Ear, Nose, Mouth, Throat: + nasal congestion; no hearing loss Respiratory: + cough and + dyspnea Cardiovascular: + dyspnea on exertion; no chest pain and no edema Gastrointestinal: + nausea; no abdominal pain, no vomiting, no constipation, no diarrhea/loose stools and no blood in stools Musculoskeletal: no joint pain and no myalgia Neurologic: no tingling, no numbness and no headache(s) Physical Exam Physical Exam: Constitutional: older male sitting comfortably in bed with nasal cannula on Eyes: EOMI, pupils equal and reactive bilaterally, no scleral icterus Cardiac: RRR, no murmurs, gallops or rubs. Normal S1, S2 Pulm: inspiratory and expiratory wheezing, difficult to auscultate given poor inspiratory effort, rhonchorous throughout Abd: soft, nontender, nondistended, normal bowel sounds, no rebound or guarding Extremities: 2+ peripheral pulses, no edema Neuro: no focal deficits, moving all 4 limbs, A&Ox3 Results & Data Results & Data ([facility]) Vital Signs (Past 12 Hours) Vital Signs Temp Pulse Pulse Resp BP Pulse Ox 01/02/21 14:41 120 H 22 01/02/21 14:20 112 H 23 01/02/21 14:10 115 H 25 H 01/02/21 14:01 113 H 22 01/02/21 14:00 117 H 121/80 01/02/21 13:50 113 H 21 01/02/21 13:40 113 H 94 01/02/21 13:37 108 H 18 94 01/02/21 13:31 108 H 20 94 01/02/21 13:30 109 H 24 119/76 94 01/02/21 13:20 111 H 93 01/02/21 13:10 111 H 94 01/02/21 13:03 110 H 23 94 01/02/21 13:01 108 H 23 91 01/02/21 13:00 116 H 28 H 120/79 91 01/02/21 12:51 112 H 28 H 91 01/02/21 12:49 113 H 19 129/82 91 01/02/21 12:30 36.4 C L 120 H 22 137/84 92 Laboratory Results WBC 19.58 K/uL (4.8-10.8) H 01/02/21 12:59 RBC 4.96 M/uL (4.7-6.1) 01/02/21 12:59 Hgb 13.9 g/dL (14.0-18.0) L 01/02/21 12:59 POC Hgb 14.3 g/dl (14.0-18.0) 01/02/21 13:13 Hct 39.9 % (42-52) L 01/02/21 12:59 POC Hct 42 % (42-52) 01/02/21 13:13 MCV 80.4 fL (80-100) 01/02/21 12:59 MCH 28.0 pg (25-34) 01/02/21 12:59 MCHC 34.8 g/dL (32-36) 01/02/21 12:59 RDW Std Deviation 44.8 fL (36.4-46.3) 01/02/21 12:59 RDW Coeff of Ariana 15.4 % (11.5-14.5) H 01/02/21 12:59 Plt Count 564 K/uL (130-400) H 01/02/21 12:59 MPV 9.5 fL (7.4-10.4) 01/02/21 12:59 Immature Gran % (Auto) 0.6 % 01/02/21 12:59 Neut % (Auto) 88.6 % 01/02/21 12:59 Lymph % (Auto) 2.3 % 01/02/21 12:59 [place] % (Auto) 8.3 % 01/02/21 12:59 Eos % (Auto) 0.1 % 01/02/21 12:59 Baso % (Auto) 0.1 % 01/02/21 12:59 Neut # (Auto) 17.37 K/uL (1.4-6.5) H 01/02/21 12:59 Lymph # (Auto) 0.45 K/uL (1.2-3.4) L 01/02/21 12:59 [place] # (Auto) 1.63 K/uL (0.11-0.59) H 01/02/21 12:59 Eos # (Auto) 0.01 K/uL (0-0.5) 01/02/21 12:59 Baso # (Auto) 0.01 K/uL (0-0.2) 01/02/21 12:59 Immature Gran # (Auto) 0.11 K/uL (0.00-0.02) H 01/02/21 12:59 PT 12.7 Seconds (9.0-12.0) H 01/02/21 13:46 INR 1.3 (0.9-1.1) H 01/02/21 13:46 APTT 44.4 Seconds (21.0-31.0) H 01/02/21 13:46 PTT Ratio 1.7 01/02/21 13:46 POC Sodium 134 mmol/L (135-144) L 01/02/21 13:13 Sodium 135 mmol/L (136-145) L 01/02/21 12:59 POC Potassium 3.0 mmol/L (3.3-5.0) L 01/02/21 13:13 Potassium 3.2 mmol/L (3.5-5.1) L 01/02/21 12:59 POC Chloride 94 mmol/L (101-112) L 01/02/21 13:13 Chloride 97 mmol/L (98-107) L 01/02/21 12:59 Carbon Dioxide 26 mmol/L (21-32) 01/02/21 12:59 POC Total CO2 26 mmol/L (24-31) 01/02/21 13:13 Anion Gap 12.0 (3-11) H 01/02/21 12:59 POC Anion Gap 18.0 mmol/L (16-25) 01/02/21 13:13 POC BUN 23 mg/dl (7-18) H 01/02/21 13:13 BUN 24 mg/dl (7-18) H 01/02/21 12:59 Creatinine 1.06 mg/dl (0.6-1.4) 01/02/21 12:59 POC Creatinine 1.1 mg/dl (0.6-1.3) 01/02/21 13:13 Est Cr Clr Drug Dosing 78.3 ml/min 01/02/21 12:59 Est GFR ( Amer) 80.9 ml/min 01/02/21 12:59 Est GFR (Non-Af Amer) 69.8 ml/min 01/02/21 12:59 BUN/Creatinine Ratio 22.6 (10-20) H 01/02/21 12:59 Glucose 102 mg/dl (70-99) H 01/02/21 12:59 POC Glucose (other) 111 mg/dl (70-99) H 01/02/21 13:13 Lactate 1.3 mmol/L (0.4-2.0) 01/02/21 12:59 Calcium 9.2 mg/dl (8.5-10.1) 01/02/21 12:59 POC Ioniz Calcium Aliya 1.02 mmol/l (1.12-1.32) L 01/02/21 13:13 COVID-19 Eval Order Covid19 at [facility] 01/02/21 13:25 SARS-CoV-2 (PCR) NEGATIVE (Negative) 01/02/21 13:25 Influ A Molecular Assay Negative (Negative) 01/02/21 13:28 Influ B Molecular Assay Negative (Negative) 01/02/21 13:[address] 01/02/21 13:01 CT SCAN OF THE CHEST WITH IV CONTRAST CLINICAL HISTORY: Cough and fever. IgG deficiency COMPARISON STUDY: Chest CT dated 09/06/2020. TECHNIQUE: Following the IV administration of 90 cc of Optiray 320, CT scan of the thorax was performed from the thoracic inlet to the upper abdomen. Images are reviewed in the axial, sagittal, and coronal planes. IV contrast was administered without complication. A dose lowering technique was utilized adhering to the principles of ALARA. CT DOSE: 541.00 mGy.cm FINDINGS: Thyroid: Imaged portions of the thyroid gland are normal in size and attenuation. Thoracic aorta: There is atherosclerotic calcification of the thoracic aorta, which is normal in caliber and demonstrates standard 3-vessel arch anatomy. No dissection is seen. Pulmonary vasculature: The pulmonary trunk is normal in caliber. There are no filling defects identified in the central pulmonary vessels to indicate pulmonary embolus. Note that this examination was not protocoled for evaluation of the pulmonary arteries. Heart: The heart is enlarged and without pericardial effusion. The coronary arteries are densely calcified. Lungs and pleural spaces: There is a moderate and at least partially pleural fluid/collection is seen at the left lung base with dense consolidation/atelectasis of the left lower lobe. There is associated pleural thickening. Bronchiectasis is seen in the right middle and right lower lobes, with right basilar scarring/atelectasis. Tree-in-bud opacities are again seen at the right lung base. The left upper lobe and the right upper lung appear clear. Layering secretions are noted in the trachea. Mediastinum: There is no mediastinal lymphadenopathy. Delmy: Clear. Axillae: There is no axillary lymphadenopathy. Upper abdomen: There is a small hiatal hernia. An 8 mm simple cystic lesion in the pancreatic body likely represents a sidebranch IPMN. Skeletal structures: The skeletal structures are osteopenic. A chronic compression deformity is again noted in T6. No lytic or blastic bony lesions are seen. Soft tissues: A shunt catheter traverses the right anterior chest wall. IMPRESSION: 1. There is a moderate and at least partially loculated pleural effusion/collection at the left lung base. There is overlying pleural thickening, and this is new from 09/06/2020. The sterility of this fluid cannot be assessed by CT. 2. There is consolidation/atelectasis of the left lower lung. 3. Bronchiectasis and chronic parenchymal changes are again seen at the right lung base. 4. Cardiomegaly. 5. Additional findings as above. ACT 112: Negative or not required by law. Electronically signed by: Freddy Quintanilla M.D. 01/02/2021 2:51 PM Supervising Physician Co-Signing Physician Notes Attending addendum: I have physically seen this patient, have supervised the medical residents activities, and agree with the H&P unless as otherwise noted. Assessment and Plan: Left lower lobe pneumonia/loculated pleural effusion/right lower lobe bronchiectasis- Admit to monitored bed Placed on vancomycin IV, cefepime IV and Flagyl IV Duonebs every 4 hours while awake and every 2 hours when necessary. Nasal cannula oxygen, titrate to keep pulse ox around 94% Consult pulmonology Atrial fibrillation/hypertension/hypokalemia- Continue metoprolol, Xarelto, diltiazem and spironolactone. Hold HCTZ K rider 20 mEq IV x1. Repeat laboratories in a.m. Remaining orders and notations as noted Resident Activity Tracking Resident Involvement: Resident Care Provided Care Provided: Adult Hospital Medicine (1) Bronchiectasis Bronchiectasis type: uncomplicated Qualified Code(s): J47.9 - Bronchiectasis, uncomplicated
[2021-01-02] MEDS ORDERED: guaiFENesin 600 MG TABCR PO PRN (17:56)
[2021-01-02] MEDS ORDERED: VANCOMYCIN HCL 1,000 MG in SODIUM CHLORIDE 0.9% 250 ML IV SCH (18:45)
--- NOTE | 2021-01-02 18:48 | Pharmacy Report ---
Pharmacy Abx Dose Short Note - Date of Service January 02, 2021 - Assessment & Plan Assessment 70 year old M receiving IV Vancomycin for treatment of worsening SOB and cough on PO Azithromycin as outpatient, elevated WBC Afebrile COVID AND FLU negative pulmonary consult Sputum culture ordered Plan Order MRSA nasal swab Vancomycin * 2500mg (25mg/kg) IV x 1 in ER * 1500mg (15mg/kg) IV every 12 hours * Goal trough level for pulmonary source : 15 to 20 mcg/mL * Trough level ordered for: 01/04/21 prior to 4th total dose Pharmacy will continue to follow and will adjust dose/frequency as necessary. Thank you.
[2021-01-02] MEDS: SODIUM CHLORIDE 0.9% 1000ML 1,000 ML IV SCH (20:06)
[2021-01-02] MEDS: POTASSIUM CHLORIDE / WTR 10 MEQ/100 ML PLCT IV SCH ×2 (20:07→21:03)
[2021-01-02] MEDS: APIXABAN 5 MG TABLET PO SCH (21:03)
[2021-01-02] MEDS: CEFEPIME 2,000 MG in SYRINGE 0 ML IV SCH (21:04)
[2021-01-02] MEDS: ALBUT/IPRATROP 3MG/0.5MG NEB 3 ML VIAL NEB SCH (22:58)
[2021-01-03] MEDS: ALBUT/IPRATROP 3MG/0.5MG NEB 3 ML VIAL NEB SCH ×6 (03:53→23:14)
[2021-01-03] MEDS ORDERED: VANCOMYCIN HCL 1,500 MG in SODIUM CHLORIDE 0.9% 500 ML IV SCH (04:00)
[2021-01-03] MEDS: SODIUM CHLORIDE 0.9% 1000ML 1,000 ML IV SCH (06:07)
[2021-01-03] MEDS: CEFEPIME 2,000 MG in SYRINGE 0 ML IV SCH (06:07)
[2021-01-03 07:39] LABS: Basophils # (auto) 0.02 K/uL (0-0.2); Basophils % (auto) 0.1 %; Eosinophils # (auto) 0.04 K/uL (0-0.5); Eosinophils % (auto) 0.3 %; Hematocrit (blood only) 37.7 % (42-52); Immature Granulocytes # (auto) 0.06 K/uL (0.00-0.02); Immature Granulocytes % (auto) 0.4 %; Lymphocytes # (auto) 0.96 K/uL (1.2-3.4); Lymphocytes % (auto) 6.8 %; Mean Corpuscular Hemoglobin 27.8 pg (25-34); Mean Corpuscular Hgb Conc 34.5 g/dL (32-36); Mean Corpuscular Volume 80.7 fL (80-100); Mean Platelet Volume 9.2 fL (7.4-10.4); Monocytes # (auto) 0.74 K/uL (0.11-0.59); Monocytes % (auto) 5.2 %; Neutrophils % (auto) 87.2 %; Platelet Count 514 K/uL (130-400); RDW Coefficient of Variation 15.7 % (11.5-14.5); RDW Standard Deviation 45.8 fL (36.4-46.3); Red Blood Count 4.67 M/uL (4.7-6.1); White Blood Count 14.22 K/uL (4.8-10.8)
[2021-01-03] MEDS: METOPROLOL SUCC 25MG EXT REL TAB PO SCH (07:57)
[2021-01-03] MEDS: FLUTICASONE FUROATE 100MCG 14 PUFFS/INHALER INH SCH (07:57)
[2021-01-03] MEDS: UMECLIDINIUM/VILANTEROL 62.5/25MCG 7 PUFFS/INHALER INH SCH (07:57)
[2021-01-03] MEDS: SPIRONOLACTONE 12.5 MG TAB PO SCH (07:58)
[2021-01-03] MEDS: APIXABAN 5 MG TABLET PO SCH (07:58)
[2021-01-03] MEDS: dilTIAZem HCL 180 MG CAPCR PO SCH (07:58)
[2021-01-03] MEDS: hydroCHLOROthiazide 25 MG TAB PO SCH (07:58)
[2021-01-03] MEDS ORDERED: PNEUMOCOCCAL Polysaccharide Vaccine 25mcg/0.5mL vial/Syr IM ONE (08:00)
[2021-01-03 08:11] LABS: BUN Creatinine Ratio 24.3 (10-20); Calcium 8.9 mg/dl (8.5-10.1); Creatinine Clr Calc Pharmacy 81.6 ml/min; Est GFR (African American) 84.7 ml/min; Est GFR (Non-African American) 73.1 ml/min; Potassium 2.9 mmol/L (3.5-5.1)
[2021-01-03 08:13] LABS: Albumin Globulin Ratio 0.5 (0.9-2); Globulin 3.9 gm/dl (2.5-4.0); Total Protein 5.9 gm/dl (6.4-8.2)
[2021-01-03] MEDS ORDERED: POTASSIUM CHLORIDE CRTAB 20 MEQ TABCR PO STA (09:10)
--- NOTE | 2021-01-03 09:16 | Pulmonary Consultation ---
Date of Consultation January 03, 2021 Assessment & Plan (1) Loculated pleural effusion: (2) Pneumonia: Laterality: right Lung location: unspecified part of lung Pneumonia type: due to unspecified organism Qualified Code(s): J18.9 - Pneumonia, unspecified organism (3) Hypoxia: (4) Parapneumonic effusion: Impression: 70-year-old male with bronchiectasis and IgG deficiency admitted with what appears to be parapneumonic complicated effusion. Recommendations: 1. Parapneumonic effusion: Recommended the patient undergo drainage. We will plan on placing a pigtail catheter later today with initiation of MIST2 protocol. Follow-up imaging and additional recommendations based on results of culture data. Will hold his apixiban for the procedure 2. We will adjust antibiotics. Discontinue cefepime Flagyl and vancomycin and transition to Zosyn. May be able to de-escalate to Unasyn depending on culture results and transition to Augmentin as a p.o. agent. 3. Continue to wean oxygen as tolerated to maintain oxygen saturations at or above 88%. The patient was advised that he will likely require a few days of hospitalization. If conservative therapy is ineffectual in resolving the parapneumonic effusion, consideration for video-assisted thoracoscopic evaluation may be appropriate. This is not available at our facility and would require transfer to a tertiary care facility. Thanks for the opportunity of assisting in the care of this patient. Feel free to contact us if we can be of additional assistance History of Present Illness Attending Physician: Laura Tipton MD History of Present Illness Asked by hospitalist to assist in management of this patient with bronchiectasis and probable empyema. History is obtained from discussion with the patient as well as review of the electronic medical record. The patient is a 70-year-old male who have the opportunity of caring for in the outpatient setting. He has a history of IgG deficiency with associated bronchiectasis. He was scheduled to see me in clinic today. He and his had been out of the state and he was seen at an urgent care and diagnosed with pneumonia. He was placed on antibiotics at that point time. He contacted our office and was given an additional course of a azithromycin. The patient has had episodes of left-sided chest discomfort which persisted. He saw his primary care provider who referred him to the emergency room. He was noted to be hypoxemic. A CT scan was performed which demonstrated a loculated pleural fluid collection. The patient has been initiated on antibiotics in the form of vancomycin cefepime and Flagyl. He states the chest pain is better this morning. He denies any history of trauma. Allergies Allergy/AdvReac Type Severity Reaction Status Date / Time ragweed pollen Allergy Mild UNKNOWN Unverified 01/02/21 14:26 Home Medications Medication Instructions Recorded Confirmed Type apixaban 5 mg tablet 5 mg PO BID 09/27/20 01/02/21 History diltiazem HCl 180 mg 180 mg PO DAILY 09/27/20 01/02/21 History capsule,extended release 24 hr hydrochlorothiazide 25 mg tablet 25 mg PO DAILY 09/27/20 01/02/21 History metoprolol succinate 25 mg 25 mg PO DAILY 09/27/20 01/02/21 History tablet,extended release 24 hr fluticasone fur. 100 mcg-umeclid 1 inh INHALATION DAILY #3 inhaler 12/24/20 01/02/21 Rx 62.5 mcg-vilant 25 mcg inhalat.powder azithromycin 500 mg tablet 500 mg PO DAILY 5 Days #5 tab 12/28/20 01/02/21 Rx guaifenesin 600 mg tablet, 600 mg PO BID PRN #60 tab 12/28/20 01/02/21 Rx extended release 12 hr spironolactone 12.5 mg PO DAILY 01/02/21 01/02/21 History Patient History Medical History (Updated 01/03/21 @ 09:18 by Rasta Laird MD) Bronchiectasis CLL (chronic lymphocytic leukemia) Hypertension IgG subclass deficiency Impotence, organic Lymphoma No pertinent family history Normal pressure hydrocephalus Permanent atrial fibrillation Prostate cancer Surgical History (Updated 01/02/21 @ 20:03 by Cheyenne Hernandez MD) No pertinent past surgical history BU[employer] PA[employer] (ventriculoperitoneal) shunt status Social History Smoking Status: Never smoker Second Hand Exposure: No; Hx Alcohol Use: No Hx Substance Use: No Preferred Language: Scottish Communication Ability: Effective 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 No additions or deletions Physical Exam Constitutional: WD/WN, vitals as above Neck: trachea midline, no thyromegaly Respiratory: normal respiratory effort Decreased breath sounds with d ullness to percussion at the left lung base Cardiovascular: RRR, no murmur, no edema Gastrointestinal (Abdomen): normal bowel sounds, soft, nontender, no hepatosplenomegaly Musculoskeletal: Extremities: extremities normal to inspection Skin: no rashes, warm and dry Neurologic: Nonfocal exam Lymphatic: no cervical lymphadenopathy Results & Data Results & Data ([facility]) Vital Signs (Past 12 Hours) Vital Signs Temp Pulse Pulse Resp BP BP Pulse Ox 01/03/21 07:48 36.6 C 114 H 20 135/78 91 01/03/21 07:30 89 20 94 01/03/21 04:25 36.9 C 115 H 20 123/73 91 01/03/21 03:59 106 H 18 90 01/02/21 23:51 111 H 01/02/21 23:00 37.2 C 121 H 20 111/62 91 Laboratory Results 01/03/21 07:29 01/03/21 07:[address] chest independently reviewed CT SCAN OF THE CHEST WITH IV CONTRAST CLINICAL HISTORY: Cough and fever. IgG deficiency COMPARISON STUDY: Chest CT dated 09/06/2020. TECHNIQUE: Following the IV administration of 90 cc of Optiray 320, CT scan of the thorax was performed from the thoracic inlet to the upper abdomen. Images are reviewed in the axial, sagittal, and coronal planes. IV contrast was administered without complication. A dose lowering technique was utilized adhering to the principles of ALARA. CT DOSE: 541.00 mGy.cm FINDINGS: Thyroid: Imaged portions of the thyroid gland are normal in size and at tenuation. Thoracic aorta: There is atherosclerotic calcification of the thoracic aorta, which is normal in caliber and demonstrates standard 3-vessel arch anatomy. No dissection is seen. Pulmonary vasculature: The pulmonary trunk is normal in caliber. There are no filling defects identified in the central pulmonary vessels to indicate pulmonary embolus. Note that this examination was not protocoled for evaluation of the pulmonary arteries. Heart: The heart is enlarged and without pericardial effusion. The coronary arteries are densely calcified. Lungs and pleural spaces: There is a moderate and at least partially pleural fluid/collection is seen at the left lung base with dense consolid ation/atelectasis of the left lower lobe. There is associated pleural thickening. Bronchiectasis is seen in the right middle and right lower lobes, with right basilar scarring/atelectasis. Tree-in-bud opacities are again seen at the right lung base. The left upper lobe and the right upper lung appear clear. Layering secretions are noted in the trachea. Mediastinum: There is no mediastinal lymphadenopathy. Delmy: Clear. Axillae: There is no axillary lymphadenopathy. Upper abdomen: There is a small hiatal hernia. An 8 mm simple cystic lesion in the pancreatic body likely represents a sidebranch IPMN. Skeletal structures: The skeletal structures are osteopenic. A chronic compression deformity is again noted in T6. No lytic or blastic bony lesions are seen. Soft tissues: A shunt catheter traverses the right anterior chest wall. IMPRESSION: 1. There is a moderate and at least partially loculated pleural effusion/collection at the left lung base. There is overlying pleural thickening , and this is new from 09/06/2020. The sterility of this fluid cannot be assessed by CT. 2. There is consolidation/atelectasis of the left lower lung. 3. Bronchiectasis and chronic parenchymal changes are again seen at the right lung base. 4. Cardiomegaly. 5. Additional findings as above. PG Care Time/CCT Total # of Minutes Spent Total Time Spent with Patient: Total time spent is greater than 50% in coordination of care (as documented) at patient's floor/unit and/or counseling patient: Coding Level of Care Code 76056 Initial Inpt Care Lvl 3 Diagnoses Loculated pleural effusion J90 Pneumonia J18.9 Laterality: right Lung location: unspecified part of lung Pneumonia type: due to unspecified organism Hypoxia R09.02 Parapneumonic effusion J18.9; J91.8
[2021-01-03] MEDS ORDERED: PIPERACILL/TAZOBAC CONSULT ACTIVE PRN (09:22)
[2021-01-03] MEDS ORDERED: PIPERACILLIN/TAZOBACTAM 3.375 GM in DEXTROSE 5% 100 ML IV STA (09:28)
[2021-01-03] MEDS: POTASSIUM CHLORIDE / WTR 10 MEQ/100 ML PLCT IV SCH ×4 (09:45→12:49)
--- NOTE | 2021-01-03 13:21 | Billing Data ---
Date of Service January 03, 2021 Coding Level of Care Code 81117 Initial Inpt Care Lvl 3
[2021-01-03] MEDS: PIPERACILLIN/TAZOBACTAM 3.375 GM in DEXTROSE 5% 100 ML IV SCH (15:22)
--- NOTE | 2021-01-03 15:33 | Medical Student Progress Note ---
Date of Service January 03, 2021 Assessment & Plan (1) Loculated pleural effusion: Mr. 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 Pleural Effusion: - Oxygen per NC PRN O2 goal > 94%. - Pulmonology planning for chest tube placement tomorrow once patient has been off of apixaban for 24 hours. - Antibiotic coverage reduced to pip-tazo given MRSA negative and pulmonology recommendations. - WBC = 14.22; continue to monitor - Duonebs Q4R scheduled. Ellipta and fluticasone daily. Hx Abnormal CT Scan: - CT scan in 2020 noting tree-in-bud airspace possibly indicating mycoplasma. - Bronch negative for any growth including no acid-fast bacilli growth. Afib: - Continue metoprolol. - Holding Xarelto for 24 hours in context of chest tube placement. NPH: - No focal neurologic defects, no mental status changes. Patient does have some memory loss at baseline. - Monitor urinary output, gait, and neurologic status for changes. - Patient wears Depends for urinary leakage but states that he has not recently had any incontinence. HTN: - Continue diltiazem, hydrochlorothiazide, and spironolactone. Hypokalemia: - 3.2 on admission. - Still 3.2 this afternoon after repletion. - Will recheck in the AM as it was not a full 4 hours after PO potassium replacement. Will check magnesium at this time as well. DVT ppx: xarelto FEN/GI: heart healthy, maintenance fluids Code Status: Full Code Dispo: Med/Surg with tele (2) IgG subclass deficiency: (3) Bronchiectasis: Bronchiectasis type: uncomplicated Qualified Code(s): J47.9 - Bronchiectasis, uncomplicated (4) Hypoxia: (5) Ventricular shunt in place: (6) Normal pressure hydrocephalus: Admission and Anticipated Discharge Date Admission Date: January 02, 2021 Supervising Attestation I was present with the medical student throughout the service, interview, and the physical exam. I independently interviewed the patient and performed the physical exam. I reviewed the chart and verified the documentation and I agree with the assessment and plan of BETTY Manzano. Azul Moore DO [facility] Resident Attending Physicain Medical Student Supervision Note: I independently interviewed and examined the patient and verified the trevizo history and physical, reviewed labs and image studies, discussed the case with the medical student Monica Garza and the Resident physician Azul Moore and agree with the findings and care plan. Left loculated pleural effusion Pneumonia - continue IV abx - For pigtail cath placement in am. Subjective Mr. Hoyt states that he is doing well today. He does not have any shortness of breath, chest pain, or pain in his side nor fevers/chills. He does continue to have cough. He is tolerating PO intake well. Review of Systems Review of Systems: All systems reviewed & are unremarkable except as noted in Subjective Physical Exam Physical Exam: Patient is resting comfortably in bed with at the bedside. He is in no acute distress. Constitutional: WD/WN, vitals as above Respiratory: normal respiratory effort, lungs clear to auscultation Auscultation: + diminished lung sounds (decreased in base of left lung ); no crackles, no rales, no rhonchi and no wheezes Cardiovascular: RRR, no murmur, no edema Gastrointestinal (Abdomen): normal bowel sounds, soft, nontender, no hepatosplenomegaly Psychiatric: A+Ox3, euthymic affect Results & Data ([facility]) Vital Signs (Past 12 Hours) Vital Signs Temp Pulse Resp BP Pulse Ox 01/03/21 15:01 99 H 18 92 01/03/21 14:55 37.0 C 96 H 18 115/72 90 01/03/21 11:11 105 H 18 93 01/03/21 11:10 36.7 C 105 H 20 115/74 93 01/03/21 07:48 36.6 C 114 H 20 135/78 91 01/03/21 07:30 89 20 94 01/03/21 04:25 36.9 C 115 H 20 123/73 91 01/03/21 03:59 106 H 18 90 Laboratory Results 01/03/21 01/03/21 01/02/21 07:29 07:29 Unknown WBC 14.22 H RBC 4.67 L Hgb 13.0 L Hct 37.7 L MCV 80.7 MCH 27.8 MCHC 34.5 RDW Std Deviation 45.8 RDW Coeff of Ariana 15.7 H Plt Count 514 H MPV 9.2 Immature Gran % (Auto) 0.4 Neut % (Auto) 87.2 Lymph % (Auto) 6.8 [place] % (Auto) 5.2 Eos % (Auto) 0.3 Baso % (Auto) 0.1 Neut # (Auto) 12.40 H Lymph # (Auto) 0.96 L [place] # (Auto) 0.74 H Eos # (Auto) 0.04 Baso # (Auto) 0.02 Immature Gran # (Auto) 0.06 H Sodium 135 L Potassium 2.9 L Chloride 99 Carbon Dioxide 27 Anion Gap 8.0 BUN 25 H Creatinine 1.02 Est Cr Clr Drug Dosing 81.6 Est GFR ( Amer) 84.7 Est GFR (Non-Af Amer) 73.1 BUN/Creatinine Ratio 24.3 H Glucose 110 H Calcium 8.9 Total Bilirubin 1.0 AST 23 ALT 23 Alkaline Phosphatase 137 H Troponin I Total Protein 5.9 L Albumin 2.0 L Globulin 3.9 Albumin/Globulin Ratio 0.5 L Nasal Screen MRSA (PCR) Negative 01/02/21 20:11 WBC RBC Hgb Hct MCV MCH MCHC RDW Std Deviation RDW Coeff of Ariana Plt Count MPV Immature Gran % (Auto) Neut % (Auto) Lymph % (Auto) [place] % (Auto) Eos % (Auto) Baso % (Auto) Neut # (Auto) Lymph # (Auto) Kitt[place] # (Auto) Eos # (Auto) Baso # (Auto) Immature Gran # (Auto) Sodium Potassium Chloride Carbon Dioxide Anion Gap BUN Creatinine Est Cr Clr Drug Dosing Est GFR ( Amer) Est GFR (Non-Af Amer) BUN/Creatinine Ratio Glucose Calcium Total Bilirubin AST ALT Alkaline Phosphatase Troponin I < 0.015 Total Protein Albumin Globulin Albumin/Globulin Ratio Nasal Screen MRSA (PCR) Medications Administered Current Inpatient Medications Albuterol (Albut/Ipratrop 3mg/0.5mg Neb 3 Ml Vial) 3 ml NEB Q4R DIANA Stop: 02/01/21 22:59 Last Admin: 01/03/21 15:01 Dose: 3 ml Documented by: Diltiazem HCl (Diltiazem Hcl 180 Mg Capcr) 180 mg PO DAILY [facility] Stop: 02/02/21 08:59 Last Admin: 01/03/21 07:58 Dose: 180 mg Documented by: Fluticasone Furoate (Fluticasone Furoate 100mcg 14 Puffs/Inhaler) 1 puffs INH DAILY DIANA Stop: 02/02/21 08:59 Last Admin: 01/03/21 07:57 Dose: 1 puffs Documented by: Guaifenesin (Guaifenesin 600 Mg Tabcr) 600 mg PO BID PRN PRN Reason: congestion Stop: 02/01/21 17:55 Hydrochlorothiazide (Hydrochlorothiazide 25 Mg Tab) 25 mg PO DAILY DIANA Stop: 02/02/21 08:59 Last Admin: 01/03/21 07:58 Dose: 25 mg Documented by: Piperacillin Sod/Tazobactam (Sod 3.375 gm/ Dextrose) 115 mls @ 28.75 mls/hr IV Q8H [facility]; Protocol Stop: 01/10/21 14:59 Last Admin: 01/03/21 15:22 Dose: 28.8 mls/hr Documented by: Metoprolol Succinate (Metoprolol Succ 25mg Ext Rel Tab) 25 mg PO DAILY [facility] Stop: 02/02/21 08:59 Last Admin: 01/03/21 07:57 Dose: 25 mg Documented by: Miscellaneous Information (Piperacill/Tazobac Consult Active) 1 ea N/A UD PRN PRN Reason: Consult Stop: 02/02/21 09:21 Spironolactone (Spironolactone 12.5 Mg Tab) 12.5 mg PO DAILY DIANA Stop: 02/02/21 08:59 Last Admin: 01/03/21 07:58 Dose: 12.5 mg Documented by: Umeclidinium/Vilanterol (Umeclidinium/Vilanterol 62.5/25mcg 7 Puffs/Inhaler) 1 puffs INH DAILY [facility] Stop: 02/02/21 08:59 Last Admin: 01/03/21 07:57 Dose: 1 puffs Documented by: Resident Activity Tracking Resident Involvement: Resident Care Provided Care Provided: Adult [facility] Medicine
[2021-01-03 16:35] LABS: BUN Creatinine Ratio 17.3 (10-20); Creatinine Clr Calc Pharmacy 68.8 ml/min; Est GFR (African American) 68.9 ml/min; Est GFR (Non-African American) 59.5 ml/min; Potassium 3.2 mmol/L (3.5-5.1)
[2021-01-04] MEDS: PIPERACILLIN/TAZOBACTAM 3.375 GM in DEXTROSE 5% 100 ML IV SCH ×3 (00:08→14:34)
[2021-01-04] MEDS ORDERED: VANCOMYCIN TROUGH ONE (03:30)
[2021-01-04 06:32] LABS: Basophils # (auto) 0.02 K/uL (0-0.2); Basophils % (auto) 0.2 %; Eosinophils # (auto) 0.15 K/uL (0-0.5); Eosinophils % (auto) 1.3 %; Hematocrit (blood only) 36.4 % (42-52); Hemoglobin 12.5 g/dL (14.0-18.0); Immature Granulocytes # (auto) 0.06 K/uL (0.00-0.02); Immature Granulocytes % (auto) 0.5 %; Lymphocytes # (auto) 1.11 K/uL (1.2-3.4); Lymphocytes % (auto) 9.6 %; Mean Corpuscular Hemoglobin 28.1 pg (25-34); Mean Corpuscular Hgb Conc 34.3 g/dL (32-36); Mean Corpuscular Volume 81.8 fL (80-100); Mean Platelet Volume 9.3 fL (7.4-10.4); Monocytes # (auto) 0.59 K/uL (0.11-0.59); Monocytes % (auto) 5.1 %; Neutrophils # (auto) 9.66 K/uL (1.4-6.5); Neutrophils % (auto) 83.3 %; Platelet Count 584 K/uL (130-400); RDW Coefficient of Variation 15.5 % (11.5-14.5); RDW Standard Deviation 46.2 fL (36.4-46.3); Red Blood Count 4.45 M/uL (4.7-6.1); White Blood Count 11.59 K/uL (4.8-10.8)
[2021-01-04 07:14] LABS: BUN Creatinine Ratio 18.6 (10-20); Calcium 8.7 mg/dl (8.5-10.1); Est GFR (African American) 91.2 ml/min; Est GFR (Non-African American) 78.7 ml/min; Magnesium 2.5 mg/dl (1.8-2.4); Potassium 3.1 mmol/L (3.5-5.1)
[2021-01-04] MEDS: ALBUT/IPRATROP 3MG/0.5MG NEB 3 ML VIAL NEB SCH ×4 (07:39→15:10)
[2021-01-04] MEDS: dilTIAZem HCL 180 MG CAPCR PO SCH (09:39)
[2021-01-04] MEDS: METOPROLOL SUCC 25MG EXT REL TAB PO SCH (09:40)
[2021-01-04] MEDS: hydroCHLOROthiazide 25 MG TAB PO SCH (09:40)
[2021-01-04] MEDS: SPIRONOLACTONE 12.5 MG TAB PO SCH (09:40)
[2021-01-04] MEDS: UMECLIDINIUM/VILANTEROL 62.5/25MCG 7 PUFFS/INHALER INH SCH (09:41)
[2021-01-04] MEDS: FLUTICASONE FUROATE 100MCG 14 PUFFS/INHALER INH SCH (09:41)
[2021-01-04] MEDS: POTASSIUM CHLORIDE CRTAB 20 MEQ TABCR PO SCH ×4 (09:42→15:51)
--- NOTE | 2021-01-04 10:40 | Hospitalist Progress Note ---
Date of Service January 04, 2021 Assessment & Plan (1) Loculated pleural effusion: Mr. Hoyt is 70-year-old male with a history of NPH s/p [employer]AL shunt placement, IgG subclass deficiency, bronchiectasis, lymphoma and prostate cancer s/p chemotherapy, admitted for loculated pleural effusion. Left Loculated Pleural Effusion: - Supplemental oxygen via nasal cannula PRN. O2 sat 96% with 1L O2 NC this AM. O2 goal > 94%. - Pulmonology consulted. Appreciate their assistance and recommendations. - Pulmonology planning for chest tube placement today since patient has been off of apixaban for 24 hours. - Receiving pip-tazo for antibiotic coverage, given MRSA negative and pulmonology recommendations. Continue abx. - WBC = 11.59 down from 14.22; continue to monitor with CBC qAM - Duonebs Q4R scheduled. Ellipta and fluticasone daily. Hx Abnormal CT Scan: - CT scan in 2020 noting tree-in-bud airspace possibly indicating mycoplasma. - Bronch negative for any growth including no acid-fast bacilli growth. Afib: - Continue metoprolol. - Apixaban held for 24 hours in context of chest tube placement. Continue post procedure NPH: - No focal neurologic defects, no mental status changes. Patient does have some memory loss at baseline. - Monitor urinary output, gait, and neurologic status for changes. - Patient wears Depends for urinary leakage but states that he has not recently had any incontinence. HTN: - Continue diltiazem, hydrochlorothiazide, and spironolactone. Hypokalemia: - 3.2 on admission. - 3.1 this AM after repletion with 40meq of K PO + 40meg IV yesterday. - Replete with 20meq PO q2 X4 (total 80meq PO) - Repeat BMP at 8pm and tomorrow AM - Will continue to replete as indicated DVT ppx: xarelto FEN/GI: heart healthy, maintenance fluids Code Status: Full Code Dispo: Med/Surg with tele (2) IgG subclass deficiency: (3) Bronchiectasis: (4) Hypoxia: (5) Ventricular shunt in place: (6) Normal pressure hydrocephalus: Admission and Anticipated Discharge Date Admission Date: January 02, 2021 Supervising Physician Co-Signing Physician Notes I was present with the medical student throughout the service, interview, and the physical exam. I independently interviewed the patient and performed the physical exam. I reviewed the chart and verified the documentation and I agree with the assessment and plan of CESAR Whelan. Azul Moore DO [facility] Resident Subjective Mr. Hoyt is 70-year-old male with a history of NPH s/p [employer] shunt placement, IgG subclass deficiency, bronchiectasis, lymphoma and prostate cancer s/p chemotherapy, admitted for loculated pleural effusion, currently on hospital day 2. Patient states that he is doing well today. He reports that his breathing is much improved. He is currently on nasal cannula but reports no shortness of breath, chest pain, pain in his side, fevers/chills, no pain or swelling in his legs. He is tolerating PO intake well. Review of Systems Constitutional: no fever and no chills Respiratory: no dyspnea and no pain on inspiration Cardiovascular: no chest pain and no dyspnea Genitourinary: no dysuria and no difficulty urinating Physical Exam Constitutional: no acute distress Neck: normal visual inspection Respiratory: normal respiratory effort and symmetric chest movement; does not use accessory muscles Auscultation: + diminished lung sounds and + wheezes lung sounds diminished in left lower lobe Cardiovascular: RRR, no murmur, no edema Rate/Rhythm: + tachycardic Heart Sounds: normal S1 and normal S2 Gastrointestinal (Abdomen): Inspection/Auscultation: normal bowel sounds; abdomen not distended Musculoskeletal: Extremities: extremities normal to inspection Neurologic: no focal deficits Results & Data Results & Data ([facility]) Vital Signs (Past 12 Hours) Vital Signs Temp Pulse Resp BP Pulse Ox 01/04/21 09:52 96 01/04/21 07:39 104 H 16 95 01/04/21 07:28 36.7 C 107 H 18 109/70 95 01/04/21 02:41 36.7 C 104 H 19 117/77 95 01/03/21 23:15 104 H 16 93 01/03/21 22:49 36.8 C 110 H 17 113/69 93 Resident Activity Tracking Resident Involvement: Resident Care Provided Care Provided: Adult Hospital Medicine (1) Bronchiectasis Bronchiectasis type: uncomplicated Qualified Code(s): J47.9 - Bronchiectasis, uncomplicated
[2021-01-04] MEDS ORDERED: LIDOCAINE 1% LOCAL 20 ML VIAL ONE (11:53)
--- NOTE | 2021-01-04 12:58 | Pulmonology Progress Note ---
Date of Service January 04, 2021 Assessment & Plan (1) Loculated pleural effusion: (2) Pneumonia: Laterality: right Lung location: unspecified part of lung Pneumonia type: due to unspecified organism Qualified Code(s): J18.9 - Pneumonia, unspecified organism (3) Hypoxia: (4) Parapneumonic effusion: Impression: 70-year-old male with bronchiectasis and IgG deficiency admitted with what appears to be parapneumonic complicated effusion. Recommendations: 1. Parapneumonic effusion: Unable to place the pigtail catheter today. Recommending transfer for to [facility] for interventional radiology services. Spoke with radiology here at [facility] and they are unable to perform a CT-guided pigtail catheter today as they do not have the ancillary services available on the weekend. 2. Continue broad-spectrum antibiotics. 3. Continue to wean oxygen as tolerated to maintain oxygen saturations at or above 88%. Admission and Anticipated Discharge Date Admission Date: January 02, 2021 Subjective Patient seen and examined this morning. He is on room air. He has mild pleuritic pain. No fevers or chills overnight. Review of Systems Review of Systems: All systems reviewed & are unremarkable except as noted in HPI & below Physical Exam Constitutional: WD/WN, vitals as above Neck: trachea midline, no thyromegaly Respiratory: normal respiratory effort Decreased breath sounds with dullness to percussion at the left lung base Cardiovascular: RRR, no murmur, no edema Gastrointestinal (Abdomen): normal bowel sounds, soft, nontender, no h epatosplenomegaly Musculoskeletal: Extremities: extremities normal to inspection Skin: no rashes, warm and dry Neurologic: Nonfocal exam Lymphatic: no cervical lymphadenopathy Results & Data Results & Data ([facility]) Vital Signs (Past 12 Hours) Vital Signs Temp Pulse Resp BP Pulse Ox 01/04/21 12:26 98.1 F 113 H 18 132/80 94 01/04/21 11:01 113 H 16 94 01/04/21 09:52 96 01/04/21 07:39 104 H 16 95 01/04/21 07:28 98.1 F 107 H 18 109/70 95 01/04/21 02:41 98.1 F 104 H 19 117/77 95 Vital signs, labs and imaging reviewed. PG Care Time/CCT Total # of Minutes Spent Total Time Spent with Patient: Total time spent is greater than 50% in coordination of care (as documented) at patient's floor/unit and/or counseling patient: Coding Level of Care Code 95032 Subseq Hosp Care Lvl 3 Diagnoses Loculated pleural effusion J90 Pneumonia J18.9 Laterality: right Lung location: unspecified part of lung Pneumonia type: due to unspecified organism Hypoxia R09.02 Parapneumonic effusion J18.9; J91.8
--- NOTE | 2021-01-04 13:03 | Procedure Note ---
Procedure Note Date of Service January 04, 2021 Note PIGTAIL CATHETER PLACEMENT NOTE: Procedure: Pigtail Catheter Chest Tube Placement Indication: Left parapneumonic effusion Anesthesia: 15 lidocaine 1% Written consent was obtained and placed on the chart. Timeout was done prior to the procedure. Prior to procedure, chest x-ray films were reviewed by myself and demonstrated a large left pleural effusion. A time-out was completed verifying correct patient, procedure, site, positioning, and implant(s) or special equipment if applicable. Utilizing bedside ultrasound, chest wall was evaluated for location for optimal chest tube placement. Location between the fifth and 6 ribs were marked on the skin using gentle pressure. The left sided chest wall was prepped with chlorhexidine and draped in the typical sterile fashion. 15 mL of 1% Lidocaine without epinephrine was used to anesthetize the skin down to the dorsal surface of the fifth rib. I was unable to aspirate pleural fluid with the finder needle. Multiple attempts were tried. Procedure was aborted. Chest x-ray is pending. Coding CPT Codes Pulmonary/Thoracic - Pulmonary and Thoracic: 45318 Thoracentesis w imaging ([id number]) [facility] Procedure Codes (Charges) Pulmonary/Thoracic Procedure 1: Pulmonary and Thoracic: 18103 Thoracentesis w imaging
--- NOTE | 2021-01-04 14:12 | XRay Report ---
XR chest 1V portable HISTORY: Status post thoracentesis attempt. COMPARISON: Chest CT 01/02/2021. FINDINGS: Moderate loculated left pleural effusion and left basilar opacities are again noted. This i s similar to the prior study. No pneumothorax. Old, healed left-sided rib fractures. The right lung i s clear. The heart remains enlarged. There is a small right pleural effusion. Right-sided ventricular peritoneal shunt catheter is partially visualized. IMPRESSION: Moderate loculated left pleural effusion and left basilar densities, unchanged. No pneumothorax. ACT 112: Negative or not required by law. Electronically signed by: Ryan Maza M.D. 01/04/2021 2:11 PM
--- NOTE | 2021-01-04 15:01 | Discharge Summary ---
Date of Service January 04, 2021 Admission HPI Per Admitting Provider 70 yo M with hx IgG deficiency, bronchiectasis, NPH with shunt, prostate cancer and lymphoma s/p chemotherapy, brought to ER by after found to have Spo2 of 80% in the office. Has been having increasing dyspnea since 11/28/20. Woke up with left sided chest pain at 3 am, pain with deep inspiration. describes that he was acutely sweaty, with purplish lips and fingernails. She had him sit in a hot shower and lay back down and this improved quickly. director of public works marketing instructor prescribed azithromycin and guafensin. He continued to have SOB with exertion and pain with inspiration, with no visible improvement on azit hromycin. Primary Care Provider: Bassam Bernal MD Admission Exam Per Admitting Provider Constitutional: older male sitting comfortably in bed with nasal cannula on Eyes: EOMI, pupils equal and reactive bilaterally, no scleral icterus Cardiac: RRR, no murmurs, gallops or rubs. Normal S1, S2 Pulm: inspiratory and expiratory wheezing, difficult to auscultate given poor inspiratory effort, rhonchorous throughout Abd: soft, nontender, nondistended, normal bowel sounds, no rebound or guarding Extremities: 2+ peripheral pulses, no edema Neuro: no focal deficits, moving all 4 limbs, A&Ox3 Principal Diagnosis Left loculated pleural effusion Discharge Exam GENERAL: No acute distress. Well developed and well nourished. Vital signs reviewed as above. EYES: EOMI. Anicteric sclerae. HENT: Moist mucous membranes. Hard of hearing. RESPIRATORY: Diffuse wheezing bilateral upper lobes. Decreased breath sounds and air movement left lower lobe. CARDIOVASCULAR: Regular rate and rhythm. No murmurs. ABDOMEN: Soft, non-tender and non-distended. Normal bowel sounds. EXTREMITIES: No edema. Non-tender. SKIN: Warm, dry. NEUROLOGIC: A/O x3. No focal neurological deficits. PSYCHIATRIC: Cooperative. Appropriate mood and affect. Discharge Data Allergies Allergy/AdvReac Type Severity Reaction Status Date / Time ragweed pollen Allergy Mild UNKNOWN Unverified 01/02/21 14:26 Consultations 01/02/21 14:57 ED Decision to Admit Stat 01/02/21 17:56 Consult Pulmonology Routine 01/04/21 13:53 Burn CD for patient Routine Ordered Studies 01/02/21 13:01 CT chest diagnostic w con Stat 01/04/21 10:57 US point of care ultrasound Stat Hospital Course (1) Loculated pleural effusion: Mr. Hoyt is 70-year-old male with a history of NPH s/p [employer] shunt placement, IgG subclass deficiency, bronchiectasis, lymphoma and prostate cancer s/p chemotherapy, admitted for loculated pleural effusion. Left Loculated Pleural Effusion with hypoxia: - Supplemental oxygen via nasal cannula PRN. O2 sat 96% with 1L O2 NC this AM. O2 goal > 94%. - WBC = 11.59 down from 14.22; - Continued on IV Zosyn - Duonebs Q4R scheduled. Ellipta and fluticasone daily. - Pulmonology consulted. - Apixaban was put on hold for procedure - attempted to place pigtail catheter chest tube placement today; however, unable to aspirate pleural fluid with the finer needle with multiple attempts tried; procedure aborted - Recommended transfer to [facility] for higher level of care including possibility of interventional radiology, interventional pulmonology, cardiothoracic surgery - Case discussed via [facility] [id number] transfer line with Dr. Galindo (hospitalist) and Dr. Thurman (thoracic surgery) - Patient accepted for transfer to [facility] for floor bed with tele by Dr. Galindo with plan to likely consult interventional pulmonology upon arrival Hx Abnormal CT Scan: - CT scan in 2020 noting tree-in-bud airspace possibly indicating mycoplasma. - Bronch negative for any growth including no acid-fast bacilli growth. Afib: - Continue metoprolol. - Apixaban on hold NPH: - No focal neurologic defects, no mental status changes. Patient does have some memory loss at baseline. - Monitor urinary output, gait, and neurologic status for changes. - Patient wears Depends for urinary leakage but states that he has not recently had any incontinence. HTN: - Continue diltiazem, hydrochlorothiazide, and spironolactone. Hypokalemia: - 3.2 on admission. - 3.1 this AM after repletion with 40meq of K PO + 40meg IV yesterday. - Replete with 20meq PO q2 X4 (total 80meq PO) - Repeat BMP at 8pm and tomorrow AM - Continue to replete as indicated DVT ppx: apixaban (currently being held) FEN/GI: heart healthy, maintenance fluids Code Status: Full Code Dispo: Med/Surg with tele --> transfer to [facility] (2) IgG subclass deficiency: (3) Bronchiectasis: (4) Hypoxia: (5) Ventricular shunt in place: (6) Normal pressure hydrocephalus: Total Time Total Time Spent Total Time Spent (In Minutes): See attending attestation Discharge Plan Discharge Items Patient Disposition: Transfer Acute Care Hospital Reason For Visit: SOB, HYPOXIA Discharge Diagnosis: Left loculated pleural effusion Condition on Discharge: Fair Activity: Per Instructions section Non-emergency contact: Primary Care Provider Call non-emergency contact if: you have any medication questions Follow-up/Referrals: Bassam Bernal MD [Primary Care Provider] - Diet: Heart Healthy Addtl Attending Provider Instructions: Mr. Hoyt, you were admitted to the hospital for shortness of breath and low blood oxygen levels (hypoxia). You have been diagnosed with a left loculated pleural effusion, which means a closed off collection of fluid in your left lung. We were unfortunately not able to place the pigtail catheter to drain the fluid here. You are being transferred to [facility] for further evaluation and management of the pleural effusion. Pending Studies at Discharge: No Stand-Alone Forms: My [facility] Skilled Items Patient informed of condition?: Yes DNR: No Discharge Level of Care: Other Communicable Disease: No Discharge Prognosis: Stable Lines: Peripheral IV Urinary Catheter: No Medications and DC Order Prescriptions: Continued Trelegy Ellipta 100-62.5-25 mcg blister with device 1 inh inhalation DAILY Qty: 3 RF: 3 guaifenesin [Mucinex] 600 mg tablet extended release 12hr 600 mg PO BID PRN (Reason: congestion) Qty: 60 RF: 1 hydrochlorothiazide 25 mg tablet 25 mg PO DAILY RF: 0 metoprolol succinate 25 mg tablet extended release 24 hr 25 mg PO DAILY RF: 0 diltiazem HCl [Cardizem CD] 180 mg capsule,extended release 24hr 180 mg PO DAILY RF: 0 spironolactone 25 mg tablet 12.5 mg PO DAILY RF: 0 Discontinued azithromycin 500 mg tablet 500 mg PO DAILY 5 Days Qty: 5 RF: 0 Eliquis 5 mg tablet 5 mg PO BID RF: 0 Discharge Orders: Discharge Order (Routine); Ordered 01/04/21 Ordered By: Azul Moore Admission Data Admit Date/Time: 01/02/21 16:12 Attending Provider: Laura Tipton Admit Provider: Cheyenne Hernandez Primary Care Provider: Bassam Bernal Other Providers: Simone Franklin Vyacheslav Other Interventions: Discharge Summary Assessment (RN) Last Done: 01/04/21 15:54 Supervising Physician Co-Signing Physician Notes Resident Physician Supervision Note: I independently interviewed and examined the patient and verified the trevizo history and physical, reviewed labs and image studies and agree with resident Dr. Moore findings and care plan. Resident Activity Tracking Resident Involvement: Resident Care Provided Care Provided: Adult Hospital Medicine
[2021-01-04] MEDS ORDERED: LIDOCAINE 1% LOCAL 20 ML VIAL INJ ONE (16:10)
--- NOTE | 2021-01-05 08:24 | Electrocardiogram Report ---
Test Reason : Blood Pressure : / mmHG Vent. Rate : 117 BPM Atrial Rate : 088 BPM P-R Int : 000 ms QRS Dur : 110 ms QT Int : 332 ms P-R-T Axes : 000 -33 013 degrees QTc Int : 463 ms Atrial fibrillation with rapid ventricular response Left axis deviation Abnormal ECG When compared with ECG of 06-FEB-2013 10:42, HR has increased by 31 bpm QRS duration has increased Confirmed by Ranjan Beverly ([id number]) on 01/05/2021 8:24:12 AM Referred By: Bassam Bernal Confirmed By:Ranjan Beverly
== END 2021-01-04 15:30 | disposition short-term general hospital (02) | DRG 191 ==
LOC: ED 12:17 → SUATTDRO 16:12 → 2N 16:12 → 2W 01-03 01:02